=== PATIENT | female | born 1945 | race Hispanic/Latino ===

== ENCOUNTER → 2022-03-21 | Day surgery (SDC) | payer MEDICARE ==
[2022-03-19 10:06] LABS: BASOPHILS # (AUTO) 0.1 (0.0-0.1); BASOPHILS % 1.3 % (0.0-1.0); EOSINOPHILS # (AUTO) 0.3 (0.0-0.4); EOSINOPHILS % 5.4 % (0.0-6.0); HEMATOCRIT 37.1 % (34.2-44.1); HEMOGLOBIN 12.2 g/dL (12.0-16.0); LYMPHOCYTES # (AUTO) 1.8 (1.0-3.2); LYMPHOCYTES % 33.5 % (18.0-39.1); MEAN CORPUSCULAR HEMOGLOBIN 29.8 pg (28-32); MEAN CORPUSCULAR HGB CONC 32.9 g/dL (31-35); MEAN CORPUSCULAR VOLUME 90.7 fL (81-99); MONOCYTES # (AUTO) 0.6 (0.2-0.8); MONOCYTES % 11.3 % (4.4-11.3); NEUTROPHILS # (AUTO) 2.6 (2.1-6.9); NEUTROPHILS % 48.3 % (38.7-80.0); PLATELET COUNT 186 x10e3/uL (140-360); RED BLOOD COUNT 4.09 x10e6/uL (3.6-5.1); RED CELL DISTRIBUTION WIDTH 12.6 % (11.7-14.4)
[2022-03-19 10:28] LABS: ANION GAP 13.4 mmol/L (8-16); CALCIUM 8.5 mg/dL (8.4-10.2); CREATININE, SERUM 0.99 mg/dL (0.57-1.11); POTASSIUM 4.4 mmol/L (3.5-5.1)
[~2022-03-21] MED LIST: AMLODIPINE BESYL5 MG PO; ATORVASTATIN CA20 MG PO; BALANCED SALT SOLN (OPTH) 15 ML BTL IO ONE; BENICAR20 MG PO; BUPIVACAINE HC 0.75% PF 10ML VIAL INJ ONE; CYCLOPENTOLATE HCL 2% OPTH SOLN 2 ML BTL OP ONE; EPINEPHRINE HCL 1:1000 1ML 1 MG/ML AMP ONE; GATIFLOXACIN(OPTH) 5 ML LIQD ONE; HYDROCHLOROTHIA25 MG; LEVOTHYROXINE75 MCG PO; LEXAPRO10 MG PO; LIDOCAINE 2% /EPINEPHRINE 20 ML SDV INJ ONE; LIDOCAINE HCL 2% LOCAL INJ 5 ML SDV VIAL INJ ONE; LIDOCAINE HCL-PF 4% 40 MG/1 ML 5ML AMP ONE; NEURONTIN100 MG PO; PHENYLEPHRINE HCL 2 ML DROPS ONE; PILOCARPINE HCL(OPTH) 15 ML LIQD ONE; POVIDONE IODINE 0.05% 0.05 % ML PO ONE; POVIDONE IODINE 5% (OPTH) 30 ML BTL ONE; PROPOFOL IV EMULSION 10 MG/ML 20 ML VIAL ONE; TOBRAMYCIN/DEXAMETHASONE(OPTH) 3.5 GM TUBE ONE
[2022-03-21 08:15] VITALS: BP 176/67
== END | disposition home or self-care (01) ==
LOC: OR 05:14
PROVIDERS: ATTEND Ophthalmology
DX: H25.12 Age-related nuclear cataract, left eye (principal); I10 Essential (primary) hypertension; E11.9 Type 2 diabetes mellitus without complications; Z01.810 Encounter for preprocedural cardiovascular examination; Z01.812 Encounter for preprocedural laboratory examination; Z20.822 Contact with and (suspected) exposure to COVID-19; Z79.4 Long term (current) use of insulin; Z79.899 Other long term (current) drug therapy
CPT/HCPCS: 0223U; 36415 ×2; 66984; 80048; 82948; 85025; 93005; J0171; J2001; V2632

== ENCOUNTER → 2022-06-13 | Day surgery (SDC) | payer MEDICARE ==
[2022-06-11 10:35] LABS: HEMATOCRIT 36.8 % (34.2-44.1); HEMOGLOBIN 12.9 g/dL (12.0-16.0)
[2022-06-11 11:12] LABS: ANION GAP 11.3 mmol/L (8-16); CALCIUM 9.2 mg/dL (8.4-10.2); CREATININE, SERUM 1.13 mg/dL (0.57-1.11); POTASSIUM 4.3 mmol/L (3.5-5.1)
[~2022-06-13] MED LIST changes: -LIDOCAINE HCL 2% LOCAL INJ 5 ML SDV VIAL INJ ONE; -LIDOCAINE HCL-PF 4% 40 MG/1 ML 5ML AMP ONE; -POVIDONE IODINE 0.05% 0.05 % ML PO ONE; -PROPOFOL IV EMULSION 10 MG/ML 20 ML VIAL ONE; +TRESIBA100 UNIT/1 SQ
[2022-06-13 11:57] VITALS: BP 160/74
== END | disposition home or self-care (01) ==
LOC: OR 08:13
PROVIDERS: ATTEND Ophthalmology
DX: H25.11 Age-related nuclear cataract, right eye (principal); E11.9 Type 2 diabetes mellitus without complications; E03.9 Hypothyroidism, unspecified; F41.9 Anxiety disorder, unspecified; I10 Essential (primary) hypertension; Z01.812 Encounter for preprocedural laboratory examination; Z79.4 Long term (current) use of insulin
CPT/HCPCS: 36415 ×2; 66984; 80048; 82948; 85014; 85018; V2632; J0171; J2001

== ENCOUNTER 2024-06-26 17:03 | Emergency (ER) | payer MEDICARE ==
[~2024-06-26] VITALS: Ht 152.4 cm; Wt 69.0 kg
[~2024-06-26 17:03] MED LIST changes: +AMLODIPINE BESY10 MG PO; +ATORVASTATIN CA40 MG PO; -BALANCED SALT SOLN (OPTH) 15 ML BTL IO ONE; -BUPIVACAINE HC 0.75% PF 10ML VIAL INJ ONE; +CEFDINIR300 MG PO; -CYCLOPENTOLATE HCL 2% OPTH SOLN 2 ML BTL OP ONE; -EPINEPHRINE HCL 1:1000 1ML 1 MG/ML AMP ONE; +GABAPENTIN100 MG PO; -GATIFLOXACIN(OPTH) 5 ML LIQD ONE; -LIDOCAINE 2% /EPINEPHRINE 20 ML SDV INJ ONE; +MEMANTINE HCL10 MG PO; +OLMESARTAN MEDO40 MG PO; +OLMESARTAN-HCT1 EAC2; -PHENYLEPHRINE HCL 2 ML DROPS ONE; -PILOCARPINE HCL(OPTH) 15 ML LIQD ONE; -POVIDONE IODINE 5% (OPTH) 30 ML BTL ONE; +RYBELSUS7 MG PO; -TOBRAMYCIN/DEXAMETHASONE(OPTH) 3.5 GM TUBE ONE; +TRESIBA FL100 UNIT/1 SC; +VENTOLIN HFA18 GM INH
[2024-06-26 17:09] VITALS: PULSE 85; RESP 16; TEMP 98.6; O2SAT 95
[2024-06-26] MEDS ORDERED: WELLBUTRIN SR150 MG PO (17:18)
[2024-06-26] MEDS ORDERED: MUCINEX DM ER1 EACH PO (17:28)
[2024-06-26] MEDS ORDERED: ZYRTEC10 MG PO (17:28)
== END 2024-06-26 17:35 | disposition home or self-care (01) ==
LOC: FSED 17:08
DX: R05.9 Cough, unspecified (principal); J06.9 Acute upper respiratory infection, unspecified; I10 Essential (primary) hypertension; E11.9 Type 2 diabetes mellitus without complications; R51.9 Headache, unspecified; E78.5 Hyperlipidemia, unspecified; E04.9 Nontoxic goiter, unspecified; F41.9 Anxiety disorder, unspecified; F32.A Depression, unspecified
CPT/HCPCS: 99283

== ENCOUNTER 2024-08-21 17:09 | Emergency (ER) | payer MEDICARE ==
[~2024-08-21] VITALS: Ht 152.4 cm; Wt 68.9 kg
[~2024-08-21 17:09] MED LIST changes: +MUCINEX DM ER1 EACH PO; +WELLBUTRIN SR150 MG PO; +ZYRTEC10 MG PO
[2024-08-21 17:56] VITALS: PULSE 102; RESP 16; TEMP 100.3
[2024-08-21] MEDS ORDERED: METFORMIN HCL500 M1 PO (18:27)
[2024-08-21] MEDS ORDERED: ACETAMINOPHEN 325 MG TAB ONE (18:55)
[2024-08-21] MEDS: ACETAMINOPHEN 325 MG TAB PO PRN (19:11)
[2024-08-21] MEDS ORDERED: AUGMENTIN 500-1 EACH PO (19:25)
[2024-08-21] MEDS ORDERED: VENTOLIN HFA18 GM INH (19:26)
[2024-08-21] MEDS: AZITHROMYCIN 250 MG TAB PO ONE (20:20)
[2024-08-21 20:54] VITALS: BP 121/65; PULSE 72; RESP 18; TEMP 98.3; O2SAT 98
== END 2024-08-21 19:36 | disposition home or self-care (01) ==
LOC: FSED 17:56
DX: R05.9 Cough, unspecified (principal); J18.9 Pneumonia, unspecified organism; J06.9 Acute upper respiratory infection, unspecified; E11.9 Type 2 diabetes mellitus without complications; Z11.52 Encounter for screening for COVID-19
CPT/HCPCS: 0223U; 71046; 83518; 87400; 99284

== ENCOUNTER 2024-11-24 18:30 | Emergency (ER) | payer MEDICARE ==
[~2024-11-24] VITALS: Ht 152.4 cm; Wt 69.5 kg
[~2024-11-24 18:30] MED LIST changes: +AUGMENTIN 500-1 EACH PO; +METFORMIN HCL500 M1 PO
[2024-11-24 18:43] VITALS: PULSE 92; RESP 20; TEMP 99.4
[2024-11-24 19:04] VITALS: BP 188/79; O2SAT 95
== END 2024-11-24 19:05 | disposition home or self-care (01) ==
LOC: FSED 18:37
DX: F41.9 Anxiety disorder, unspecified (principal); F32.A Depression, unspecified; E11.9 Type 2 diabetes mellitus without complications; E03.9 Hypothyroidism, unspecified; R41.3 Other amnesia
CPT/HCPCS: 99282